=== PATIENT | male | born 1995 | race Caucasian/White ===

== ENCOUNTER 2018-07-30 18:01 | Emergency (ER) | payer OTHER, SELFPAY ==
[2018-07-30 18:02] VITALS: BP 152/90; PULSE 105; RESP 18; TEMP 37.4; O2SAT 99; BMI 21.4
--- NOTE | 2018-07-30 18:46 | CT_ITS ---
STUDY: CT BRAIN WITHOUT CONTRAST REASON FOR EXAM: Male, 22 years old. Fell 11 feet. RADIATION DOSAGE (If Supplied By Facility): CTDIvol = ( 60.81 ) mGy, DLP = ( 998.67 ) mGycm TECHNIQUE: Transaxial CT imaging of the brain was performed without administration of intravenous contrast material. Individualized dose optimization techniques were used for this CT. COMPARISON: None. FINDINGS: Normal size ventricles and extra-axial spaces for the patient's age. Normal white matter tracts of the cerebral hemispheres. Normal basal ganglia and thalami. Normal brainstem. Normal cerebellum. There is no intracranial hemorrhage. There are no findings of an acute ischemic infarction. Fluid levels are noted in the right sphenoid sinus. This is concerning for occult facial or base of skull fracture. There is no evidence of fracture. Soft tissues are unremarkable. CT/Brain/Head without Contrast IMPRESSION: 1. No intracranial findings. 2. Fluid in the right sphenoid sinus, concerning for occult facial or base of skull fracture. Electronically Signed: Liv Manuel MD at 19:29 EDT Tel , Service support ,
--- NOTE | 2018-07-30 18:47 | CT_ITS ---
STUDY: CT CERVICAL SPINE WITHOUT CONTRAST REASON FOR EXAM: Male, 22 years old. FELL 11 FT/POS. LOC/SWELLING OCCIPITAL AREA-PT. SHIELDED RADIATION DOSAGE (If Supplied By Facility): CTDIvol = ( 20.85 ) mGy, DLP = ( 377.69 ) mGycm TECHNIQUE: High resolution transaxial imaging was performed without contrast material. Sagittal and coronal images were reconstructed. Individualized dose optimization techniques were used for this CT. COMPARISON: None FINDINGS: Normal craniovertebral junction. Normal anterior atlantoaxial articulation. Normal odontoid process. Soft tissue air along the inferior right mastoid air cells. No visualized fracture. Normal cervical lordosis. Normal vertebral bodies and posterior osseous elements. C2-3: Normal endplates. Normal disc height and morphology. Normal central canal and intervertebral neuroforamina. C3-4: Normal endplates. Normal disc height and morphology. Normal central canal and intervertebral neuroforamina. C4-5: Normal endplates. Normal disc height and morphology. Normal central canal and intervertebral neuroforamina. C5-6: Normal endplates. Normal disc height and morphology. Normal central canal and intervertebral neuroforamina. C6-7: Normal endplates. Normal disc height and morphology. Normal central canal and intervertebral neuroforamina. C7-T1: Normal endplates. Normal disc height and morphology. Normal central canal and intervertebral neuroforamina. Normal visualized soft tissue structures. CT/Spine Cervical without Contras IMPRESSION: Normal unenhanced CT examination of the cervical spine. Soft tissue air along the inferior right mastoid air cells. No visualized fracture. Electronically Signed: Rudy Washburn MD at 19:20 EDT , Service support ,
--- NOTE | 2018-07-30 19:42 | CT_ITS ---
STUDY: CT FACIAL BONES WITHOUT CONTRAST REASON FOR EXAM: Male, 22 years old. Facial pain. RADIATION DOSAGE (If Supplied By Facility): CTDIvol = ( 29.38 ) mGy, DLP = ( 547.46 ) mGycm TECHNIQUE: The patient was scanned in a multi detector CT scanner. Sagittal and coronal images were reconstructed. Individualized dose optimization techniques were used for this CT. COMPARISON: None. FINDINGS: Normal soft tissue structures. Normal orbital hale and orbital contents. Normal nasal bones and anterior nasal spine. Normal facial bones. Fluid levels are noted in the right sphenoid sinus. Trace fluid is noted in the right mastoid sinus. There is mild widening of the right occipital mastoid suture compared to the left, with nondepressed fracture extending posteriorly into the occiput. Tiny chip fracture may be present along the inferior margin. Opacified mastoid cells lie immediately lateral to the widened suture/fracture. Soft tissue gas in the right carotid space is consistent with the presence of a small mastoid fracture. CT/Sinus/Facial Bone IMPRESSION: 1. Nondepressed right occipital base of skull fracture, including the occipital mastoid suture. See lorenzo images. 2. Fluid levels in the right sphenoid and mastoid sinuses is consistent with base of skull fracture. Electronically Signed: Liv Manuel MD at 20:38 EDT Tel , Service support ,
[2018-07-30 19:59] VITALS: BP 143/69; PULSE 71; RESP 18; O2SAT 97
--- NOTE | 2018-07-30 20:33 | ED.DCSUM_ITS ---
- ER Visit Summary Date of Service: 07/30/18 Chief Complaint: Head injury History of Present Illness: The patient is a 22 M who reportedly fell approximately 11 or 12 feet off of a roof at 530 yesterday evening. Family states that he walks to the house but was confused. The patient does not not remember this, but next remember is waking up in bed 3 hours after the initial fall. He is complaining of mild headache especially over the occiput along with some right-sided neck pain. He denies vision change, light sensitivity, nausea, or vomiting. He denies paresthesias or weakness. He denies back pain. He has been taking either some Tylenol or aspirin today for pain. Physical Examination: Blood pressure is 152/90, temperature 99.3, heart rate 105, respiratory rate 18, pulse ox 99% on room air. Patient sitting upright in bed no acute distress. Head and neck examination reveals no obvious trauma. He has mild tenderness to the right occiput region. There is no midline cervical tenderness. There is no hemotympanum. Heart is regular rate and rhythm. Lung sounds are clear. Abdomen is soft nontender. Neuro exam is normal. Test Results: CT head shows no intracranial findings. There is fluid in the right sphenoid sinus which is concerning for an occult facial or base of skull fracture. No definite fracture is seen. CT the C-spine shows normal C-spine. There is soft tissue air along the inferior mastoid air cells. No visualized fracture. Patient was sent back for CT scan of the facial bones. There is a nondisplaced right occipital base of skull fracture including the occipital mastoid suture. Emergency Department Course and Treatment: Patient has maintained normal neuro exam throughout his ED stay. He is given ibuprofen for headache per his request. I spoke with both trauma surgery as well as neurosurgery in [place]. Patient does not require transfer at this time. He can follow with his primary care physician or with the trauma clinic if he prefers. Treatment Plan: [] Disposition: Discharge Impression: Occipital bone fracture status post fall This note was generated with [employer] dictation software. It may contain incorrect words, spelling, and punctuation that were not noted in review of the chart prior to signing ED Disposition - Plan for ED Patient: Chief Complaint: Head Injury Referrals: Care Physician,No Primary [Primary Care Provider] -
--- NOTE | 2018-07-30 21:07 | DCINST.ED_ITS ---
ED Disposition - Plan for ED Patient: Disposition: Home or Assisted Living Chief Complaint: Head Injury Instructions: ED Concussion, Facial Fracture Additional Instructions: You can follow-up with your physician or with trauma services at [facility]. [phone]
[2018-07-30] MEDS: Ibuprofen 600 MG Tablet PO (21:14)
[2018-07-30 21:18] VITALS: BP 147/76; PULSE 75; RESP 18; RESP 96; O2SAT 18; O2SAT 96
== END 2018-07-30 21:26 | disposition home or self-care (01) ==
PROVIDERS: Emergency Provider Emergency Medicine
DX: S02.11GA Other fracture of occiput, right side, initial encounter for closed fracture (principal); W13.2XXA Fall from, out of or through roof, initial encounter; Y93.9 Activity, unspecified
CPT/HCPCS: 70450; 70486; 72125; 99283